=== PATIENT | female | born 1975 | race Caucasian/White ===

== ENCOUNTER 2017-04-20 18:21 | Emergency (ER) | payer OTHER ==
--- NOTE | 2017-04-20 18:32 | ED NURSING NOTES ---
Clinical Report - Nurses [facility] [address] [place] [address] 04/20/2017 18:24 Patient: NAPOLEON NGUYEN TRIAGE Triage time 1820. Acuity: LEVEL 4. Chief Complaint: (pt in by [employer] for fit for care home and legal blood draw. pt smells of ETOH, is tearful keeps repeating "I fuc*%ed up"). 18:20. --18:25 Esther Rehman R.N. 18:20 04/20/17. BP: 152/85. HR: 102. RR: 20. O2 saturation: 99%. Temp: 98.3 F. Pain level now: 0/10. --18:25 Esther Rehman R.N. Weight: 63.5 kg estimated. Height/Length: 66 inches Per Patient. BMI: 22.6. Growth Chart Percentile: Weight: 100%. Height/Length: 100%. --18:20 Esther Rehman R.N. Medications None. --18:25 Esther Rehman R.N. Allergies Sulfa Antibiotics. --18:25 Esther Rehman R.N. History Historian: patient. Arrived in police custody and accompanied by police. No primary care physician. PAST MEDICAL HX: ( anxiety, ADHD,). SURGERY HX: Adenoidectomy. ( lt ankle). SOCIAL HX: Light tobacco smoker (cigarette)- less than 1/2 a pack per day. Occasional alcohol use. History of drug use: marijuana. --18:25 Esther Rehman R.N. Interventions ID band on patient. To treatment room. --18:25 Esther Rehman R.N. PHYSICAL ASSESSMENT 18:20. Ambulatory to room. GENERAL / NEURO / PSYCH: Alert. Oriented X 4. Appears in no acute distress. ( tearful, smells of ETOH). HEENT: Mucous membranes are pink. RESPIRATORY: Respirations not labored. Chest nontender. GI / : Abdomen soft. SKIN: Skin is warm and dry. --18:26 Esther Rehman R.N. NURSING PROGRESS NOTES 18:20. Head of bed elevated. Reassurance given. Patient identifiers checked. Call light placed in reach. Side rails up. Bed placed in lowest position. Patient ready for evaluation- chart flagged. --18:25 Esther Rehman R.N. 18:35. ( Lab here for legal blood draw.). --18:48 Esther Rehman R.N. 18:40. ( EDRN called friend for pt, to let her know that she will not be able to pick her up from work tonight.). --18:48 Esther Rehman R.N. DISPOSITION / DISCHARGE 19:04/20/17. The goals identified in the patient's plan of care were met. Ability to learn limited by poor comprehension. Learning barriers note: Intoxicated. Discharge instructions provided and reviewed with the patient (police). Reviewed warnings. Reviewed medication(s). Treatments reviewed. Patient verbalized understanding. Written instructions provided in Lebanese. The patient was discharged by the physician print shop assistant. She was discharged home and accompanied by a police escort. She left the Emergency Department ambulatory and via police department vehicle. ( Pt cleared for care home, DC'd in Police Custody). FALL RISK ASSESSMENT: Fall risk assessment completed. No fall risk identified. --19:01 Jasbir Guillen R.N. 18:59 04/20/17. BP: unable to obtain. HR: unable to obtain. RR: unable to obtain. O2 saturation: unable to obtain. Temp: unable to obtain. Pain level now: 0/10. Additional comments: Pt refused DC vitals. --19:01 Jasbir Guillen R.N. 19:01 04/20/17. Departure time: 19:Apr 20 2017. --19:01 Jasbir Guillen R.N. Locked/Released at 04/20/2017 19:02 by Jasbir Guillen R.N.
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
--- NOTE | 2017-04-20 18:32 | ED NURSING NOTES ---
Clinical Report - Nurses [facility] [address] [place] [address] 04/20/2017 18:24 Patient: NAPOLEON NGUYEN TRIAGE Triage time 1820. Acuity: LEVEL 4. Chief Complaint: (pt in by [employer] for fit for correction and legal blood draw. pt smells of ETOH, is tearful keeps repeating "I fuc*%ed up"). 18:20. --18:25 Esther Rehman R.N. 18:20 04/20/17. BP: 152/85. HR: 102. RR: 20. O2 saturation: 99%. Temp: 98.3 F. Pain level now: 0/10. --18:25 Esther Rehman R.N. Weight: 63.5 kg estimated. Height/Length: 66 inches Per Patient. BMI: 22.6. Growth Chart Percentile: Weight: 100%. Height/Length: 100%. --18:20 Esther Rehman R.N. Medications None. --18:25 Esther Rehman R.N. Allergies Sulfa Antibiotics. --18:25 Esther Rehman R.N. History Historian: patient. Arrived in police custody and accompanied by police. No primary care physician. PAST MEDICAL HX: ( anxiety, ADHD,). SURGERY HX: Adenoidectomy. ( lt ankle). SOCIAL HX: Light tobacco smoker (cigarette)- less than 1/2 a pack per day. Occasional alcohol use. History of drug use: marijuana. --18:25 Esther Rehman R.N. Interventions ID band on patient. To treatment room. --18:25 Esther Rehman R.N. PHYSICAL ASSESSMENT 18:20. Ambulatory to room. GENERAL / NEURO / PSYCH: Alert. Oriented X 4. Appears in no acute distress. ( tearful, smells of ETOH). HEENT: Mucous membranes are pink. RESPIRATORY: Respirations not labored. Chest nontender. GI / : Abdomen soft. SKIN: Skin is warm and dry. --18:26 Esther Rehman R.N. NURSING PROGRESS NOTES 18:20. Head of bed elevated. Reassurance given. Patient identifiers checked. Call light placed in reach. Side rails up. Bed placed in lowest position. Patient ready for evaluation- chart flagged. --18:25 Esther Rehman R.N. 18:35. ( Lab here for legal blood draw.). --18:48 Esther Rehman R.N. 18:40. ( EDRN called friend for pt, to let her know that she will not be able to pick her up from work tonight.). --18:48 Esther Rehman R.N. DISPOSITION / DISCHARGE 19:04/20/17. The goals identified in the patient's plan of care were met. Ability to learn limited by poor comprehension. Learning barriers note: Intoxicated. Discharge instructions provided and reviewed with the patient (police). Reviewed warnings. Reviewed medication(s). Treatments reviewed. Patient verbalized understanding. Written instructions provided in [place]serr[place]. The patient was discharged by the physician asset protection assistant. She was discharged home and accompanied by a police escort. She left the Emergency Department ambulatory and via police department vehicle. ( Pt cleared for correction, DC'd in Police Custody). FALL RISK ASSESSMENT: Fall risk assessment completed. No fall risk identified. --19:01 Jasbir Guillen R.N. 18:59 04/20/17. BP: unable to obtain. HR: unable to obtain. RR: unable to obtain. O2 saturation: unable to obtain. Temp: unable to obtain. Pain level now: 0/10. Additional comments: Pt refused DC vitals. --19:01 Jasbir Guillen R.N. 19:01 04/20/17. Departure time: 19:Apr 20 2017. --19:01 Jasbir Guillen R.N. Locked/Released at 04/20/2017 19:02 by Jasbir Guillen R.N.
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
--- NOTE | 2017-04-20 19:02 | ED MAR SUMMARY ---
..... Medication Administration Record [facility] [address], [place] [id number] Patient: NAPOLEON NGUYEN Visit ID: [id number] 42y, F Weight: 63.5 kg Height/Length: 66 in BMI: 22.6 ALLERGIES: Sulfa Antibiotics
--- NOTE | 2017-04-20 19:02 | ED MED RECONCILIATION SUMMARY ---
Patient: NAPOLEON NGUYEN Medication Reconciliation Report [facility] VisitID: [id number] [address] [place] [address] 42y, F Registration Date/Time: 04/20/2017 Weight: 63.5 kg Height/Length: 66 in. BMI: 22.6 ALLERGIES: Sulfa Antibiotics The patient's Home Medications are listed below: NONE. The source(s) of the original Home Medication information: Not obtained. The following Medications were given to the patient in the Emergency Department: None. The following Medications were prescribed to the patient: Take OTC medications according to label instructions. Available over the counter. -- Orly Hernandez, P.A.-C Acetaminophen (available over the counter): take according to label instructions. -- Orly Hernandez, P.A.-C
--- NOTE | 2017-04-20 19:02 | ED MED RECONCILIATION SUMMARY ---
Patient: NAPOLEON NGUYEN Medication Reconciliation Report [facility] VisitID: [id number] [address] [place] [address] 42y, F Registration Date/Time: 04/20/2017 Weight: 63.5 kg Height/Length: 66 in. BMI: 22.6 ALLERGIES: Sulfa Antibiotics The patient's Home Medications are listed below: NONE. The source(s) of the original Home Medication information: Not obtained. The following Medications were given to the patient in the Emergency Department: None. The following Medications were prescribed to the patient: Take OTC medications according to label instructions. Available over the counter. -- Orly Hernandez, P.A.-C Acetaminophen (available over the counter): take according to label instructions. -- Orly Hernandez, P.A.-C
--- NOTE | 2017-04-20 19:02 | ED DISCHARGE INSTRUCTIONS ---
Patient: NAPOLEON NGUYEN General Instructions [facility] VisitID: [id number] [address] [place] [address] 42y, F Registration Date/Time: 04/20/2017 Substance abuse problems: abuse of alcohol. Substance dependence problems: dependence on alcohol. Cleared for Detention. INSTRUCTIONS OTC Medications: Take OTC medications according to label instructions. Available over the counter. Acetaminophen (available over the counter): take according to label instructions. (Electronically signed by Orly Hernandez P.A.-C 04/20/2017 18:48)
--- NOTE | 2017-04-20 19:02 | ED DISCHARGE INSTRUCTIONS ---
Patient: NAPOLEON NGUYEN General Instructions [facility] VisitID: [id number] [address] [place] [address] 42y, F Registration Date/Time: 04/20/2017 Substance abuse problems: abuse of alcohol. Substance dependence problems: dependence on alcohol. Cleared for Nursing Home. INSTRUCTIONS OTC Medications: Take OTC medications according to label instructions. Available over the counter. Acetaminophen (available over the counter): take according to label instructions. (Electronically signed by Orly Hernandez P.A.-C 04/20/2017 18:48)
--- NOTE | 2017-04-20 19:02 | ED MAR SUMMARY ---
..... Medication Administration Record [facility] [address], [place] [id number] Patient: NAPOLEON NGUYEN Visit ID: [id number] 42y, F Weight: 63.5 kg Height/Length: 66 in BMI: 22.6 ALLERGIES: Sulfa Antibiotics
== END 2017-04-20 19:01 | disposition home or self-care (01) ==
LOC: ED SRH 18:21
DX: F10.20 Alcohol dependence, uncomplicated (principal); Z02.89 Encounter for other administrative examinations; Z88.2 Allergy status to sulfonamides